=== PATIENT | male | born 1935 | race Caucasian/White ===

== ENCOUNTER → 2016-08-01 | Outpatient (CLI) | payer OTHER | LOC: ULTRA 07:42 | DX: R10.9 Unspecified abdominal pain (principal); R11.0 Nausea ==

== ENCOUNTER → 2019-09-17 | Outpatient (CLI) | payer OTHER ==
[~2019-09-17] MED LIST: LIPITOR 20 MG T20 M1 PO; LISINOPRIL-HCT1 EACH PO
== END ==
LOC: SJCVCIMAG 12:32 → SJCVC 12:32
PROVIDERS: ATTEND Internal Medicine Cardiovascular Disease
DX: I65.23 Occlusion and stenosis of bilateral carotid arteries (principal); R94.39 Abnormal result of other cardiovascular function study; E78.00 Pure hypercholesterolemia, unspecified; I10 Essential (primary) hypertension; R09.89 Other specified symptoms and signs involving the circulatory and respiratory systems; R53.83 Other fatigue; R68.89 Other general symptoms and signs; R07.89 Other chest pain; Z87.891 Personal history of nicotine dependence

== ENCOUNTER 2019-09-25 06:45 | Inpatient (IN) | payer OTHER ==
[~2019-09-25] VITALS: Ht 172.7 cm; Wt 77.6 kg
--- NOTE | ~2019-09-25 | D ---
[facility] [place] [address] DISCHARGE SUMMARY Name: MASTER ESPINO Room #: 209-P ADM IN M.R.#: [id number] Admission: 09/25/19 Attend Phys: Umesh Vazquez MD, Discharge: Date of : 37 Report #: [id number] THIS REPORT FOR: cc: ANUJ - Kerry family physician/PCP ANUJ - Kerry family physician/PCP Umesh Vazquez MD [facility] THIS REPORT FOR: //name// CC: ANUJ physician/PCP Umesh Vazquez [facility] COURSE: The patient is an 84-year-old male admitted with accelerating anginal pattern and cardiac catheterization revealing severe 3-vessel coronary artery disease. Subsequently, underwent bypass surgery by Dr. Mcmahon, complicated by pneumothorax on the right side. Otherwise, he had a nice recovery and remained hemodynamically stable. He is up and ambulating, doing well. His biggest issue is currently urinary retention. The patient had had subtotal LAD and large ramus branch right off of the left main and then ostial right coronary artery of 90%. These 3 vessels were bypassed. The patient had 4-vessel bypass, CARSON to an LAD and SVG to a ramus intermedius, and SVG to a PDA branch off of the right coronary artery and the posterior lateral branch off of the circumflex artery. He will be discharged to home, Wade catheter with Urology appointment. Last creatinine was 1.1. He will be discharged on aspirin, ____ 0.4, amiodarone 400 a day for a week and then decrease to 200, atorvastatin 20, albuterol p.r.n., iron, stool softener, Pepcid. Low fat, low sodium, low cholesterol diet. No heavy lifting as instructed per surgery. Has followup arranged with CV surgery ____. Would prefer to enter into cardiac rehab at [facility]. DISCHARGE DIAGNOSES: 1. Coronary artery disease, successful bypass surgery x4 as noted above. 2. Hypertension. 3. Hypercholesterolemia. 4. Postoperative anemia. 5. Degenerative joint disease. Thank you for asking me to assist in the care of this patient. By: [id number] Umesh Vazquez MD, FACC /nt
[2019-09-25 07:18] VITALS: BP 137/68
[2019-09-25] MEDS ORDERED: LIPITOR 20 MG T20 M1 PO (07:19)
[2019-09-25] MEDS ORDERED: LISINOPRIL-HCT1 EACH PO (07:20)
[2019-09-25 08:16] LABS: HEMATOCRIT 38.4 % (42.0-52.0); MCH 32.7 pg (26.0-34.0); MCHC 33.8 g/dL (28.0-37.0); MCV 96.7 fL (80.0-100.0); RBC 3.97 mil/uL (4.50-6.00); RDW 13.1 % (10.5-14.5); WBC 7.1 thou/uL (4.0-11.0)
[2019-09-25 08:25] LABS: CALCIUM 8.6 mg/dL (8.5-10.1); CREATININE 1.1 mg/dL (0.7-1.3); POTASSIUM 3.6 mmol/L (3.5-5.1)
[2019-09-25 13:13] LABS: ABSOLUTE NEUTROPHILS 4.2 thou/uL (1.4-8.2); BASOPHILS 0.4 % (0.0-2.0); EOSINOPHILS 1.7 % (0.0-3.0); HEMOGLOBIN 13.8 gm/dL (14.0-18.0); MCH 33.1 pg (26.0-34.0); MCHC 34.4 g/dL (28.0-37.0); MCV 96.3 fL (80.0-100.0); MONOCYTES 10.1 % (1.0-8.0); PLATELET COUNT 202 thou/uL (150-400); POLYS 60.8 % (36.0-66.0); RBC 4.16 mil/uL (4.50-6.00); RDW 13.1 % (10.5-14.5); WBC 6.9 thou/uL (4.0-11.0)
[2019-09-25 13:29] LABS: CALCIUM 8.6 mg/dL (8.5-10.1); POTASSIUM 3.5 mmol/L (3.5-5.1)
[2019-09-25 13:34] LABS: APTT 27.1 Seconds (24.5-32.8); PROTIME 10.5 Seconds (9.3-11.4)
[2019-09-25 13:36] LABS: ALBUMIN 3.1 g/dL (3.4-5.0); TOTAL PROTEIN 6.3 g/dL (6.4-8.2)
--- NOTE | 2019-09-25 15:32 | NUR ---
PT ORIENTEDTO ROOM AND UNIT, BED LOW AND LOCKED, SIDE RAILS UP X3, CALL LIGHT IN REACH, TELE APPLIED. WILL CONTINUE TO ASSESS.
[2019-09-25 16:28] VITALS: BP 131/66
[2019-09-25 20:35] VITALS: BP 140/82
[2019-09-26 03:06] LABS: GLYCOHEMOGLOBIN (HGB A1C) 5.8 % (4.8-5.6)
--- NOTE | 2019-09-26 04:20 | NUR ---
ASSUMED CARE OF PATIENT AT 1900. PATIENT RESTED WELL THROUGH NOC. HEARTRATE FLUCTUATED FROM UPPER 50s to LOWER 60s THROUGH NOC. PATIENT DENIED ANY PAIN OR SOA AT ASSESSMENTS. WILL CONTINUE TO MONITOR.
[2019-09-26 04:55] VITALS: BP 129/62
[2019-09-26 08:00] VITALS: BP 121/59
[2019-09-26 09:14] LABS: HEMATOCRIT 41.7 % (42.0-52.0); HEMOGLOBIN 14.3 gm/dL (14.0-18.0); MCH 33.1 pg (26.0-34.0); MCHC 34.3 g/dL (28.0-37.0); MCV 96.4 fL (80.0-100.0); RBC 4.33 mil/uL (4.50-6.00); RDW 13.5 % (10.5-14.5); WBC 8.3 thou/uL (4.0-11.0)
[2019-09-26 09:30] LABS: ALBUMIN 3.4 g/dL (3.4-5.0); CALCIUM 8.9 mg/dL (8.5-10.1); CREATININE 1.1 mg/dL (0.7-1.3); POTASSIUM 3.7 mmol/L (3.5-5.1); TOTAL BILIRUBIN 1.1 mg/dL (0.2-1.0); TOTAL PROTEIN 6.7 g/dL (6.4-8.2)
[2019-09-26 12:00] VITALS: BP 121/59
[2019-09-26 12:10] VITALS: BP 119/63
[2019-09-26 16:00] VITALS: BP 128/86
--- NOTE | 2019-09-26 16:32 | NUR ---
PT CARE ASSUMED AT 0700. ASSESSMENTS CHARTED. MEDICATION CHARTED. VSS. PT HAS NO CONCERNS; REQUESTED PERMISSION TO WALK AROUND UNIT. PT DENIES PAIN.
[2019-09-26 20:30] VITALS: BP 120/62
--- NOTE | 2019-09-27 04:08 | NUR ---
ASSUMED CARE OF PATIENT AT 1900. PATIENT AMBULATED AROUND UNIT BEFORE HS. PATIENT DENIED PAIN AT ASSESSMENTS AND APPEARED REST WELL THROUGH NOC.
[2019-09-27 04:45] VITALS: BP 102/52
[2019-09-27 08:19] VITALS: BP 112/66
[2019-09-27 12:27] VITALS: BP 119/69
[2019-09-27 17:22] VITALS: BP 141/72
--- NOTE | 2019-09-27 18:03 | NUR ---
ASSESSMENTS AND INTERVENTIONS DOCCUMENTED. NO MAJOR CONCERNS THROUGH OUT THE SHIFT. PATIENT SCHEDULED FOR CABG ON SUNDAY.
[2019-09-27 20:00] VITALS: BP 135/71
[2019-09-28 04:45] VITALS: BP 127/59
--- NOTE | 2019-09-28 05:14 | NUR ---
ASSUMED CARE AT 1900. PT ALERT AND ORIENTED. DENIES PT. VSS. NO CHEST PAIN . SR ON THE MONITOR. INDEPENDENT IN HIS ROOM . PT AMBULATED AROUND HALLWAYS WITHOUT ANY C/O SOB. PT AWARE OF THE PLANNED PROCEDURE AND DENIES CONCERNS. WILL CONTINUE TO MONITOR AND FOLLOW POC.
[2019-09-28 07:54] VITALS: BP 119/63
[2019-09-28 07:56] VITALS: BP 119/63
[2019-09-28 11:40] VITALS: BP 111/55
--- NOTE | 2019-09-28 15:39 | NUR ---
PT CARE ASSUMED APPROX 0700. ASSESSMENTS CHARTED. PT DENIES PAIN AND SOA. VSS. UP WITH STEADY GAIT. TOLERATING POC. PT CARE TRANSFERRED TO ANOTHER NURSE AT APPROX 1430. RECEIVING NURSE DENIED QUESTIONS OR CONCERNS REGARDING PT'S POC.
[2019-09-28 15:55] VITALS: BP 140/75
[2019-09-28 20:33] VITALS: BP 138/74
[2019-09-29] VITALS (20 sets, daily range): BP systolic 86–149; BP diastolic 35–87
--- NOTE | 2019-09-29 03:52 | NUR ---
1900. PT ALERT AND ORIENTED. VITALS STABLE. REPORTS MINIMAL CHEST PAIN RATING AT 3/10. NITRO PASTE APPLIED SCHEDULED. CHEST PAIN WAS ALLEVIATED BY MORPHINE 4 MG. TYLENOL PRN FOR HEADACHE. PT REPORTS HX OF MIGRAINE HEADACHES BUT ALSO POSITION NITRO CAUSE. REPORTS NUMBNESS AND MILD TINGLING TO THE LEFT ARM. AM TROPONIN 32.44, NOFIFIED FROM PREVIOUS SHIFT THAT CARDIOLOGY IS AWARE AND DOES NOT WANT TO NOTIFIED OF ELEVATED TROPONINS. PT SCHEDULED FOR A HEART CATH THIS AM. NPO SINCE 0000, CONSENT FOR SIGNED. WILL CONTINUE TO MONITOR AND FOLLOW POC.
--- NOTE | 2019-09-29 05:24 | NUR ---
PT ALERT AND ORIENTED. VITALS STABLE. DENIES CHEST PAIN. NO C/O SOB OR NAUSEA OVERNIGHT. SR ON THE MONITOR. PT SCHEDULED FOR CABG THIS AM. NPO SINCE MIDNIGHT. BLOOD BANK CONFIRMED PRESENCE OF 2 UNITS OF BLOOD FOR THE PATIENT. PREOP SHOWER COMPLETED X2, NIGHT AND MORNING . PT SEEM BY DR VICENTE YESTERDAY AND DENIES ANY CONCERNS. MORNING WEIGHT 157.8 LBS STANDING WEIGHT. RIGHT HAND BP 149/87 (103), LEFT HAND BP 135/86 (104), TEMP 97.5, RESP. 16, O2 98% RA, PULSE 73. ALL PERSONAL BELONGINGS WILL ACCOMPANY THE PATIENT TO PREOP HOLDING PER PATIENT REQUEST. CONSENT FORM SIGNED AND PREOP CHECKLIST INITIATED. WILL CONTINUE TO MONITOR.
--- NOTE | 2019-09-29 07:31 | EKG ---
[facility] [place] [address] ELECTROCARDIOGRAM REPORT Name: MASTER ESPINO Room #: 210-P ADM IN M.R.#: [id number] Admission: 09/25/19 Attend Phys: Umesh Vazquez MD, Discharge: Date of : 37 Report #: [id number] THIS REPORT FOR: cc: FAM - No family physician/PCP FAM - No family physician/PCP Jesu Monreal MD 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 /EPI
[2019-09-29 08:22] LABS: URINE BILIRUBIN NEGATIVE (Negative); URINE BLOOD NEGATIVE (Negative); URINE CLARITY CLEAR; URINE COLOR YELLOW; URINE GLUCOSE-RANDOM* NEGATIVE (Negative); URINE KETONES NEGATIVE (Negative); URINE LEUKOCYTES NEGATIVE (Negative); URINE NITRITE NEGATIVE (Negative); URINE PROTEIN (DIPSTICK) NEGATIVE (Negative); URINE SPECIFIC GRAVITY 1.015 (1.005-1.035); URINE UROBILINOGEN 0.2 E.U./dl (0.2-1.0)
--- NOTE | 2019-09-29 08:30 | NUR ---
chart review, cm consulted. unable to visit with pt rt supposed to be having cabg today. will cont following as needed for dc needs.
[2019-09-29 09:28] LABS: POC BE 2 mmol/L (-2.0 to +3.0); POC CA IONIZED 4.8 mg/dL (4.5-5.3); POC GLUCOSE 113 mg/dL (70-99); POC HEMOGLOBIN 11.9 g/dL (14.0-18.0); POC POTASSIUM 3.9 mmol/L (3.5-5.1); POC SODIUM 139 mmol/L (136-145); POC pCO2 38.4 mmHg (35.0-45.0); POC pH 7.439 (7.360-7.450)
[2019-09-29 12:27] LABS: HEMATOCRIT 26.7 % (42.0-52.0); MCH 32.8 pg (26.0-34.0); MCHC 33.5 g/dL (28.0-37.0); MCV 97.8 fL (80.0-100.0); RBC 2.73 mil/uL (4.50-6.00); RDW 13.9 % (10.5-14.5); WBC 18.9 thou/uL (4.0-11.0)
[2019-09-29 12:45] LABS: APTT 31.9 Seconds (24.5-32.8); FIBRINOGEN 195.8 mg/dL (210-360); PROTIME 15.7 Seconds (9.3-11.4)
[2019-09-29 12:47] LABS: INR 1.5
[2019-09-29 13:44] LABS: POC BE 0 mmol/L (-2.0 to +3.0); POC CA IONIZED 4.3 mg/dL (4.5-5.3); POC GLUCOSE 125 mg/dL (70-99); POC HEMOGLOBIN 9.2 g/dL (14.0-18.0); POC POTASSIUM 4.9 mmol/L (3.5-5.1); POC SODIUM 140 mmol/L (136-145); POC pCO2 39.4 mmHg (35.0-45.0); POC pH 7.411 (7.360-7.450)
[2019-09-29 13:44] LABS: POC BE 1 mmol/L (-2.0 to +3.0); POC CA IONIZED 4.9 mg/dL (4.5-5.3); POC GLUCOSE 111 mg/dL (70-99); POC HCO3 26.7 mmol/L (22.0-26.0); POC HEMOGLOBIN 11.2 g/dL (14.0-18.0); POC POTASSIUM 4.1 mmol/L (3.5-5.1); POC SODIUM 141 mmol/L (136-145); POC pCO2 51.7 mmHg (35.0-45.0); POC pH 7.321 (7.360-7.450)
[2019-09-29 13:45] LABS: POC BE -1 mmol/L (-2.0 to +3.0); POC CA IONIZED 5.7 mg/dL (4.5-5.3); POC GLUCOSE 136 mg/dL (70-99); POC HEMOGLOBIN 8.8 g/dL (14.0-18.0); POC POTASSIUM 3.9 mmol/L (3.5-5.1); POC SODIUM 141 mmol/L (136-145); POC pCO2 38.8 mmHg (35.0-45.0)
[2019-09-29 13:45] LABS: POC BE 2 mmol/L (-2.0 to +3.0); POC CA IONIZED 4.4 mg/dL (4.5-5.3); POC GLUCOSE 137 mg/dL (70-99); POC HCO3 25.2 mmol/L (22.0-26.0); POC HEMOGLOBIN 9.2 g/dL (14.0-18.0); POC POTASSIUM 4.6 mmol/L (3.5-5.1); POC SODIUM 140 mmol/L (136-145); POC pCO2 31.9 mmHg (35.0-45.0); POC pH 7.505 (7.360-7.450)
[2019-09-29 13:45] LABS: POC BE 0 mmol/L (-2.0 to +3.0); POC CA IONIZED 4.4 mg/dL (4.5-5.3); POC GLUCOSE 144 mg/dL (70-99); POC HCO3 24.7 mmol/L (22.0-26.0); POC HEMOGLOBIN 8.5 g/dL (14.0-18.0); POC POTASSIUM 4.3 mmol/L (3.5-5.1); POC SODIUM 140 mmol/L (136-145); POC pCO2 39.1 mmHg (35.0-45.0); POC pH 7.408 (7.360-7.450)
[2019-09-29 13:45] LABS: POC BE -3 mmol/L (-2.0 to +3.0); POC CA IONIZED 4.2 mg/dL (4.5-5.3); POC GLUCOSE 149 mg/dL (70-99); POC HCO3 22.1 mmol/L (22.0-26.0); POC HEMOGLOBIN 10.2 g/dL (14.0-18.0); POC POTASSIUM 3.9 mmol/L (3.5-5.1); POC SODIUM 142 mmol/L (136-145); POC pCO2 37.4 mmHg (35.0-45.0); POC pH 7.379 (7.360-7.450)
[2019-09-29 13:45] LABS: POC BE 0 mmol/L (-2.0 to +3.0); POC CA IONIZED 4.5 mg/dL (4.5-5.3); POC GLUCOSE 154 mg/dL (70-99); POC HCO3 23.9 mmol/L (22.0-26.0); POC HEMOGLOBIN 8.8 g/dL (14.0-18.0); POC POTASSIUM 4.7 mmol/L (3.5-5.1); POC SODIUM 140 mmol/L (136-145); POC pCO2 33.2 mmHg (35.0-45.0); POC pH 7.465 (7.360-7.450)
--- NOTE | 2019-09-29 14:00 | NUR ---
Or Staff sierra over Mr Nancy aguiar Cell Phone. We did call his Servando and updated her.
--- NOTE | 2019-09-29 14:00 | NUR ---
Pt recieved to the ICU acc by Anes and OR crew. Dr Mcmahon and guerrero at the bedside. Pt sedated and on Propofol, No other Drips at this time. Placed on the Vent and the Monitor all hemodynamic numbers WNL. Chest tube and Meds intact and pacemaker off monitor show NSR w PAC's. very small amt of drainage noted in the ct's tubes. Wade patent and drainage blooy w small amt of clots. Rt leg w prudencio wrap no bleeding. Will cont to monitor.
[2019-09-29 14:24] LABS: HEMATOCRIT 31.1 % (42.0-52.0); HEMOGLOBIN 10.4 gm/dL (14.0-18.0); MCH 32.5 pg (26.0-34.0); MCHC 33.3 g/dL (28.0-37.0); MCV 97.7 fL (80.0-100.0); RBC 3.18 mil/uL (4.50-6.00); RDW 13.8 % (10.5-14.5); WBC 26.9 thou/uL (4.0-11.0)
--- NOTE | 2019-09-29 14:25 | NUR ---
Labs send and RT here to do ABG's, Dr Mcmahon aware of the ABG's rt decreased the FIO2 to 50%. pt starting to wake up, opens his eyes and moving his feet. Propofol turned off. will cont to monitor. See vs for Hemodynamics.
[2019-09-29 14:28] LABS: CALCIUM 7.9 mg/dL (8.5-10.1); CREATININE 0.8 mg/dL (0.7-1.3); MAGNESIUM 2.4 mg/dL (1.8-2.4); POTASSIUM 3.9 mmol/L (3.5-5.1)
[2019-09-29 14:35] LABS: BE(vivo) -2.9 mmol/L (-2 to +3); HCO3 22.6 mmol/L (22.0-26.0); PO2 113.2 mmHg (80.0-100.0); pH 7.349 (7.360-7.450); sO2 97.9 % (92.0-98.0)
[2019-09-29 14:35] LABS: APTT 31.3 Seconds (24.5-32.8); INR 1.2; PROTIME 12.2 Seconds (9.3-11.4)
--- NOTE | 2019-09-29 17:00 | NUR ---
Pt awake and pointing to the tube, nods yes when asked does he want it out. Rt called and pt placed on CPAP. 1715 Pt tolerating well. Waiting for Rt. 1735 Pt extubated and placed on a 50% FS VVS. Dr Mcmahon updated.
[2019-09-29 17:25] LABS: BE(vivo) -6.5 mmol/L (-2 to +3); HCO3 18.2 mmol/L (22.0-26.0); PCO2 33.7 mmHg (35.0-45.0); PO2 84.1 mmHg (80.0-100.0); pH 7.351 (7.360-7.450)
--- NOTE | 2019-09-29 18:25 | CATHLAB ---
[facility] [place] [address] INVASIVE PROCEDURE REPORT Name: MASTER ESPINO Room #: 248-P ADM IN M.R.#: [id number] Admission: 09/25/19 Attend Phys: Umesh Vazquez MD, Discharge: Date of : 37 Report #: [id number] THIS REPORT FOR: cc: FAM - No family physician/PCP FAM - No family physician/PCP Umesh Vazquez MD [facility] ~ APPROVED REPORT Study performed: 09/25/2019 07:45:28 Patient Details Patient Status: Out-Patient Room #: The patient is a 84 year-old male Event Personnel Umesh Vazquez Guardian Family Member, Jesse Peñaloza RN RN, Anneliese Bermudez RTR Cody Royal Roberta Monitor, Meggan De Luna RTR Monitor, Farhad Marino RTR X-Ray Tech Procedures Performed Art Access - R femoral artery* Left Heart Cath w/or w/o Coronaries [id number] [facility] [address] Initial Mod Sed Same Phys/QHP Gr5y 608742 06863 Mod Sed Same Phys/QHP Ea 763386 Hemostasis w/ Mynx Aortogram Abdominal Peripheral Angio 674428 Indication Chest pain Procedure Narrative The Right Groin^ was infiltrated with 1% Lidocaine subcutaneous anesthesia. A PINNACLE 6FR Sheath #[id number] sheath was inserted into the RFA^. Coronary angiography was performed using coronary diagnostic catheters. The right coronary system was accessed and visualized with a JR4 catheter. The left coronary system was accessed and visualized with a JL4 catheter. The left ventricle was accessed and visualized with a PIGTAIL catheter. Closure device was deployed with a Fr MYNXGRIP 6/7F #[id number]. The patient tolerated the procedure well and there were no complications associated with the procedure. There was no hematoma. Intraoperative Conscious Sedation Fentanyl 100 mcg Versed 2 mg Fluoro Time: 1.53 minutes [facility] [place] [address] INVASIVE PROCEDURE REPORT Name: MASTER ESPINO Room #: 248-P [facility] IN ..#: [id number] Admission: 09/25/19 Attend Phys: Umesh Vazquez, Discharge: Date of : 37 Report #: [id number] Dose: DAP 2333.70 cGycm2 273 mGy Contrast Type and Amount: Omnipaque 115 ml Hemodynamics The aortic pressure is 102/51 mmHg with a mean of 53 mmHg. The left ventricular pressure is 96/4 mmHg with a mean of mmHg. The left ventricular end diastolic pressure is 12 mmHg. Conclusion 1. Normal left jugular size and systolic function EF 65% #2 abdominal aortogram shows mild infrarenal aortic ectasia but no definite aneurysm. Renal arteries appear to be widely patent #3 there is high-grade and complex ostial LAD disease just off of the left main. Subtotaled in nature preserved flow #4 a ramus intermedius branch is also subtotaled just off of the left main. Significant large area of calcification appears to be involving both the ostium of the LAD and this ramus stenosis. #5 the left main is very short and then subtotally occluded although brisk flow into the circumflex. But the calcium occludes the LAD and ramus as noted above. #6 the circumflex OM is a codominant system there is an eccentric 70% lesion in the mid circumflex #7 high-grade ostial codominant RCA 80% filling a small PDA. Recommendations and plan: Continue aggressive risk factor modification. Patient will be admitted to CCU CV surgical consultation. This complex ostial disease with significant calcification best served with revascularization by bypass. <ELECTRONICALLY SIGNED> By: Umesh Vazquez MD, [facility] 09/29/191824 24 24 Umesh Vazquez MD, FACC /INF
[2019-09-30 05:47] LABS: HEMATOCRIT 30.2 % (42.0-52.0); HEMOGLOBIN 10.1 gm/dL (14.0-18.0); MCH 32.4 pg (26.0-34.0); MCHC 33.5 g/dL (28.0-37.0); MCV 96.7 fL (80.0-100.0); RBC 3.12 mil/uL (4.50-6.00); RDW 13.6 % (10.5-14.5); WBC 28.3 thou/uL (4.0-11.0)
[2019-09-30 05:54] LABS: CALCIUM 7.9 mg/dL (8.5-10.1); CREATININE 1.1 mg/dL (0.7-1.3); MAGNESIUM 2.3 mg/dL (1.8-2.4); POTASSIUM 4.5 mmol/L (3.5-5.1)
--- NOTE | 2019-09-30 06:25 | NUR ---
Pt progressing toward discharge goals. SBP initially in 80-90's range; pt given 250 cc 5% albumin and SBP has remained 100's to 120's, MAP > 60. All chest tubes remain to -20 cmH2O, no crepitus, small air leak from mediastinal tubes beginning at midnight. Pt on 4 L HFC most of night, increased to 5 L when up to chair this a.m. O2 Sat remains > 92%. Able to get IS to 500 cc this a.m. Urine output 400 cc this shift. Taking clear liquids without nausea. All drsgs clean, dry and intact. Pt up to chair with minimal assist of [address] Mcmahon called at 0600 to check on pt status and updated
[2019-09-30 07:40] VITALS: BP 100/62
--- NOTE | 2019-09-30 07:45 | EKG ---
[facility] [place] [address] ELECTROCARDIOGRAM REPORT Name: MASTER ESPINO Room #: 248-P ADM IN M.R.#: [id number] Admission: 09/25/19 Attend Phys: Umesh Vazquez MD, Discharge: Date of : 37 Report #: [id number] THIS REPORT FOR: cc: ANUJ - No family physician/PCP FAM - No family physician/PCP Jesu Monreal MD [facility] ~ THIS REPORT FOR: //name// [facility] Test Date: 2019-09-29 Test Time: 15:57:23 Pat Name: MASTER ESPINO Department: Room: 248 P Gender: M Student Counsellor: Vikram CHAVARRIA : 1935 Requested By: Iam Kat Order Number: [id number] MD: Jesu Monreal Measurements Intervals [place] Rate: 80 P: 60 CA: 181 QRS: 60 QRSD: 133 T: 22 QT: 412 QTc: 476 Interpretive Statements Sinus rhythm Atrial premature complexes Right bundle branch block Compared to ECG 09/26/2019 07:05:00 Atrial premature complex(es) now present Right bundle-branch block now present Sinus bradycardia no longer present Electronically Signed On 09-30-2019 7:45:06 CDT by Jesu Monreal [email or web address] <ELECTRONICALLY SIGNED> By: Jesu Monreal MD, [facility] 09/30/19 0745 1557 1557 Jesu Monreal MD, [facility] /EPI
--- NOTE | 2019-09-30 07:54 | EKG ---
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: AKANKSHA : 1935 Requested By: Iam Kat Order Number: [id number] MD: Jesu Monreal Measurements Intervals [place] Rate: 74 P: 69 IN: 156 QRS: 78 QRSD: 108 T: 34 QT: 403 QTc: 448 Interpretive Statements Sinus rhythm Right bundle branch block Compared to ECG 09/29/2019 15:57:23 Low QRS voltage now present Atrial premature complex(es) no longer present Electronically Signed On 09-30-2019 7:54:36 CDT by Jesu Monreal [email or web address] <ELECTRONICALLY SIGNED> By: Jesu Monreal MD, [facility] 09/30/19 0754 0736 Jesu Monreal MD, [facility] /EPI
--- NOTE | 2019-09-30 08:42 | NUR ---
Nutrition: Pt POD 1 CABG x 4. Consult received. Will followup to address education needs when out of ICU/closer to D/C.
[2019-09-30 09:41] VITALS: BP 93/66
--- NOTE | 2019-09-30 10:57 | NUR ---
cm consult dcp, cm tried to reach pt via phone call, no answer. cm spoke with bedside nurse, unable at the time to see if pt has his cell phone or phone in icu room. will cont following as needed for dc needs.
[2019-09-30 11:40] VITALS: BP 116/50
[2019-09-30 13:40] VITALS: BP 111/43
[2019-09-30 15:40] VITALS: BP 101/56
--- NOTE | 2019-09-30 16:20 | NUR ---
ASSUMED CARE @ 0700 09/30/19, PT ASSESSMENTS AND VSS COMPLETE PER ICU PROTOCOL. PT AXOX4, SWAN DC'D TODAY, PACER WIRES CAPPED, NO COMPLICATIONS NOTED. R ART LINE IN PLACE, GOOD WAVE FORMS NOTED, MED CHEST TUBE HAS A SMALL AIR LEAK, TAMARA AWARE, LEAVE MED CHEST TUBES IN TILL TOMMORROW. FOR PART OF THE AM, UO WAS 20ML/HR, TAMARA HARRIS INFORMED, RN TOLD TO ENCOURAGE TO DRINK FLUIDS BUT IF IT DOES NOT NET TECHNICAL ARCHITECT PUT IN ORDER FOR NS 75ML/HR. 6833 DAUGHTER DARWIN @ BEDSIDE TO VISIT WITH PT.
--- NOTE | 2019-09-30 17:03 | O ---
[facility] [place] [address] OPERATIVE REPORT Name: MASTER ESPINO Room #: 248-P ADM IN M.R.#: [id number] Admission: 09/25/19 Attend Phys: Umesh Vazquez MD, Discharge: Date of : 37 Report #: [id number] THIS REPORT FOR: cc: ANUJ - No family physician/PCP ANUJ - No family physician/PCP Jayy Mcmahon MD ~ CC: [facility] physician/PCP Umesh Vazquez DATE OF SERVICE: 09/29/2019 PREOPERATIVE DIAGNOSIS: Coronary artery disease. POSTOPERATIVE DIAGNOSIS: Coronary artery disease. OPERATION: Coronary artery bypass x 4 including left internal mammary artery to left anterior descending, saphenous vein to ramus intermedius and saphenous vein to posterior descending artery (branch of right coronary) and posterolateral branch (circumflex branch) and endoscopic harvest, right greater saphenous vein. SURGEON: Jayy Mcmahon MD CLOSING COORDINATOR: KIMBERLY Bruner. ANESTHESIA: General. INDICATIONS: The patient is an 84-year-old seen for Dr. Vazquez. The patient presents with progressive angina. Catheterization demonstrates severe 3-vessel coronary artery disease including high-grade LAD and ramus intermedius lesions in a codominant system. The circumflex itself had a 50-60% lesion in my estimation threatening a distal posterolateral branch and the right coronary had an ostial lesion at least 90%. Left ventricular function is satisfactory. FINDINGS AND TECHNIQUE: After general anesthesia was established, saphenous vein was harvested from the right leg using an endoscopic approach and it was prepared for use as a conduit. Exposure was obtained through median sternotomy. Left internal mammary artery was harvested. Pericardial well was made. Cannulation sutures were placed. Heparin was given. Aorta was cannulated. Right atrium was cannulated. Cardioplegia needle was positioned in the aortic root. Retrograde cardioplegic catheter was placed in coronary sinus. Cardiopulmonary bypass was established. Aorta was cross clamped. Antegrade and retrograde cardioplegia were given. Ice was poured into the pericardial well. The heart was stopped. During electromechanical arrest, the distal anastomoses were performed and [facility] [address] [place] [address] OPERATIVE REPORT Name: MASTER ESPINO Room #: 248-P [facility] IN M.R.#: [id number] Admission: 09/25/19 Attend Phys: Umesh Vazquez MD, Discharge: Date of : 37 Report #: [id number] end-to-side anastomosis was made between vein and the posterolateral branch of the circumflex. Cold cardioplegia was given. The same segment of vein was sewn in end-to-side fashion to the posterior descending artery, which was a branch of the right coronary. Cold cardioplegia was given. A separate segment of vein was sewn in end-to-side fashion to the large ramus intermedius. Cold cardioplegia was given. Left internal mammary artery was sewn in end-to-side fashion to the left anterior descending artery. Patency of this vessel was checked with the temperature technique and the Doppler. Cold cardioplegia was given. Two proximal anastomoses were performed. When these were complete, warm retrograde cardioplegia was given followed by warm continuous blood to the coronary sinus. When this infusion was complete, the crossclamp was removed, de-airing maneuvers were performed. The anastomoses were inspected and found to be satisfactory. As the patient warmed, nice cardiac activity resumed, chest tubes and pacing wires were placed, a marker was placed around the proximal anastomoses. When the patient was warm, he was weaned from cardiopulmonary bypass. Venous cannula was removed. Protamine was given, the aortic cannula was removed. Flows were measured in the bypass grafts. When hemostasis was satisfactory, chest was irrigated with antibiotic solution and closed in the usual fashion. The patient was taken to the Intensive Care Unit in good condition having tolerated the procedure well. All counts reported as correct. <ELECTRONICALLY SIGNED> By: Jayy Mcmahon MD 09/30/19 1703 1502 1540 Jayy Mcmahon MD /nt
--- NOTE | 2019-09-30 17:03 | HC ---
[facility] [place] [address] CONSULTATION Name: MASTER ESPINO Room #: 248-P [facility] IN M.R.#: [id number] Admission: 09/25/19 Attend Phys: Umesh Vazquez MD, Discharge: Date of : 37 Report #: [id number] THIS REPORT FOR: cc: [facility] - No family physician/PCP [facility] - No family physician/PCP Jayy Mcmahon MD ~ CC: [facility] physician/PCP Umesh Vazquez DATE OF SERVICE: 09/25/2019 We were asked by Dr. Vazquez to see the patient. HISTORY OF PRESENT ILLNESS: The patient is an 84-year-old who complains of several months of shortness of breath with exertion and chest pain with exertion. This has been relatively stable, but has clearly increased since he first noticed it months ago. The patient states that he has chest pain after walking for 20 minutes or so and developed some shortness of breath that limits his activity. The patient has had no symptoms at rest. The patient is a healthy 84-year-old who is treated for hypercholesterolemia and hypertension. PAST MEDICAL HISTORY: The patient denies diabetes mellitus. 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 He is a former smoker who quit in 1971. ALLERGIES: None known. FAMILY HISTORY: Mother had hypertension. REVIEW OF SYSTEMS: GENERAL: No fever, no weight change. EYES: No recent vision change. ENT: No recent hearing loss. No sinus problems. RESPIRATORY: As mentioned, short of breath, more described as fatigue with exertion. No cough, no hemoptysis. CARDIAC: Angina with exertion. No rest pain, no palpitations. GASTROINTESTINAL: No nausea, vomiting, blood. GENITOURINARY: No urgency, frequency, blood. MUSCULOSKELETAL: No bone or joint pain. SKIN: No rash or infection. NEUROLOGIC: No motor or sensory dysfunction. HEMATOLOGIC: No easy bruising or bleeding. ENDOCRINE: No goiter, no tremor. [facility] [address] [place] [address] CONSULTATION Name: MASTER ESPINO Room #: 248-P [facility]#: [id number] Admission: 09/25/19 Attend Phys: Umesh Vazquez MD, Discharge: Date of : 37 Report #: [id number] PHYSICAL EXAMINATION: CONSTITUTIONAL: The patient is lying in bed after cardiac cath, seems comfortable. VITAL SIGNS: Blood pressure 124/62, heart rate 62. HEENT: No scleral icterus, no arcus. NECK: No mass, no bruit. CHEST: Clear to auscultation. HEART: Rhythm regular with no murmur. ABDOMEN: Soft, no mass. EXTREMITIES: No clubbing, cyanosis or edema. VASCULAR: 2+ popliteal pulses bilaterally. No obvious saphenous vein problems. MUSCULOSKELETAL: No bone or joint asymmetry or deformity. NEUROLOGIC: No gross motor or sensory dysfunction. SKIN: No rash or infection. ASSESSMENT: Cardiac catheterization shows severe 3-vessel coronary artery disease with a codominant system. LAD and a large ramus have subtotal lesions, but fill antegrade. There is mid circumflex stenosis that measures 30% or so, but could be more severe in some views. Right coronary has an ostial lesion 90%. Left ventricular function looks normal. ASSESSMENT AND PLAN: The patient has severe coronary artery disease, particularly in the LAD and right systems. We have been asked to see the patient because of treacherous anatomy and multiple lesions. I have discussed the risks and details of coronary bypass. These include but are not limited to bleeding, infection, anesthesia risks, heart and lung problems, stroke and . Options and alternatives were reviewed. The patient understands all of this and wishes to proceed. We planned surgery for Sunday and we will obtain our preoperative studies before that. It is a privilege to participate in this challenging patient's care. Thank you for the consult. <ELECTRONICALLY SIGNED> By: Jayy Mcmahon MD 09/30/19 1703 1059 1251 Jayy Mcmahon MD /nt
[2019-09-30 17:40] VITALS: BP 106/49
[2019-10-01] VITALS (13 sets, daily range): BP systolic 98–119; BP diastolic 48–60
[2019-10-01 05:56] LABS: HEMATOCRIT 28.9 % (42.0-52.0); HEMOGLOBIN 9.6 gm/dL (14.0-18.0); MCH 32.7 pg (26.0-34.0); MCHC 33.3 g/dL (28.0-37.0); MCV 98.2 fL (80.0-100.0); RBC 2.94 mil/uL (4.50-6.00); RDW 13.9 % (10.5-14.5); WBC 26.5 thou/uL (4.0-11.0)
[2019-10-01 07:11] LABS: CALCIUM 8.1 mg/dL (8.5-10.1)
--- NOTE | 2019-10-01 08:01 | NUR ---
ASSUMED CARE AT 0700, ASSESSMENT AND VITAL SIGNS COMPLETED PER ICU PROTOCOL. RN DISCUSSED POC AND GOALS WITH PT. RN WILL FOLLOW POC AND CONTINUE TO MONITOR.
[2019-10-01 08:15] LABS: POTASSIUM 4.3 mmol/L (3.5-5.1)
--- NOTE | 2019-10-01 18:35 | NUR ---
ASSUMED CARE OF PT THIS AFTERNOON. VSS. SR ON TELE. CHEST TUBE TO SUCTION. PT UP SITTING IN THE CHAIR. ATE VERY SMALL PORTION OF DINNER. WILL CCONTINE TO MONITOR.
[2019-10-02 00:17] VITALS: BP 93/54
--- NOTE | 2019-10-02 03:22 | NUR ---
CARE ASSUMED 1900. PT ALERT AND ORIENTED , BUT IN SOMEWHAT RESPITORY DISTRESS. NOTED WHEEZING AND COURSE LUNG SOUNDS TO THE LEFT, AND ABSENT LUNG SOUNDS TO THE RIGHT. CHEST X-RAY HAD PREVIOUS BEEN DONE DUE TO SOB AND SHOWED DEVELOPMENT OF LARGE PNEUMOTHORAX. DR. CINTHIA MCDONALD NOTIFIED. DR. GANDARA CAME TO THE UNIT AROUND 2029 TO INSERT A RIGHT SIDED CHEST TUBE AT BEDSIDE. PT REPORTS LESS PAIN AND SOB AFTER CHEST TUBE INSERTION. REMAINS SR ON THE MONITOR. DENIES NAUSEA,AND VOMITING. AIR LEAK IN THE LEFT CHEST TUBE PRESENT EVIDENT BY BUBBLING. NO AIR LEAK TO THE RIGHT CHEST TUBE. BOTH ATRIUMS CONNECT TO -20 PRESSURE SUCTION. SEE I&O FOR OUTPUT. O2 TITRATED FROM 6L TO CURRENTLY 3L, SATS >95. NO OTHER CONCERNS. WILL CONTINUE TO FOLLOW POC.
[2019-10-02 04:07] VITALS: BP 112/53
[2019-10-02 07:18] VITALS: BP 104/51
[2019-10-02 11:05] VITALS: BP 113/48
[2019-10-02 15:33] VITALS: BP 114/52
--- NOTE | 2019-10-02 18:20 | NUR ---
ASSUMED CARE AT SHIFT CHANGE, ALERT AND ORIENTED X4. ASSESSMENT DOCUMENTED AND VSS. SOB WITH ACIVITIES, AND WALKED WITH PT AND CARDIAC REHAB. SUJATHA DRESSING INATCT, AND DELMY CT INPLACE WITH DRESSING INTACT. PATIENT WAS UNABLE TO VIOD, AND STATED THAT HE HAS NOT HAVE THE URGE TO GO. DEMETRISAR SCANNED AND CHAVEZ PLACED PER DR ORDERS. PROGRESSING TOWARDS GOALS, AND WILL CONTINUE WITH POC.
[2019-10-02 20:06] VITALS: BP 117/52
[2019-10-03 00:07] VITALS: BP 109/47
[2019-10-03 03:13] VITALS: BP 117/58
[2019-10-03 05:54] LABS: CALCIUM 8.5 mg/dL (8.5-10.1); HEMATOCRIT 26.4 % (42.0-52.0); HEMOGLOBIN 8.8 gm/dL (14.0-18.0); MCH 32.6 pg (26.0-34.0); MCHC 33.5 g/dL (28.0-37.0); MCV 97.2 fL (80.0-100.0); POTASSIUM 4.3 mmol/L (3.5-5.1); RBC 2.71 mil/uL (4.50-6.00); RDW 13.5 % (10.5-14.5); WBC 15.1 thou/uL (4.0-11.0)
--- NOTE | 2019-10-03 05:56 | NUR ---
Assumed care at 1900. pt alert and oriented. vitals stable. Reports sternal chest pain. Pain meds as needed. Flomax first dose started last night. pt currently has a iyer, good urine output. Medium bowel movement last night. reports improved appetite. Denies SOB, Both chest tubes intact. SR on the monitor. 170.9 LBs standing weight this morning. pt encouraged to IS as he has not been good with the IS. Verbalizes understanding. IS 1.5 L achieved. Will continue to monitor.
--- NOTE | 2019-10-03 07:57 | EKG ---
[facility] [place] [address] ELECTROCARDIOGRAM REPORT Name: MASTER ESPINO Room #: 209-P ADM IN M.R.#: [id number] Admission: 09/25/19 Attend Phys: Umesh Vazquez MD, Discharge: Date of : 39 Report #: [id number] THIS REPORT FOR: cc: FAM - No family physician/PCP FAM - No family physician/PCP Jesu Monreal MD [facility] THIS REPORT FOR: //name// [facility] Test Date: 2019-10-03 Test Time: 07:07:34 Pat Name: MASTER ESPINO Department: Room: 209 P Gender: M Client Service Professional: AKANKSHA : [id number] Requested By: Iam Kat Order Number: [id number] MD: Jesu Monreal Measurements Intervals [place] Rate: 84 P: 85 DC: 157 QRS: 47 QRSD: 131 T: 36 QT: 407 QTc: 482 Interpretive Statements Sinus rhythm Right bundle branch block Compared to ECG 09/30/2019 07:36:55 No significant changes Electronically Signed On 10-03-2019 7:57:25 CDT by Jesu Monreal [email or web address] <ELECTRONICALLY SIGNED> By: Jesu Monreal MD, [facility] 10/03/19 0757 6 6 Jesu Monreal MD, [facility] /EPI
[2019-10-03 08:00] VITALS: BP 103/82
[2019-10-03 12:00] VITALS: BP 134/69
--- NOTE | 2019-10-03 13:07 | NUR ---
Assess due to length of stay. S/P CABG x 4. Pt reports usually eats well at home, but decline in intake since surgery which is expected. No wt loss from reported usual wt of 165 lb. Refused breakfast but drank 100% of an ensure which he likes. Offer ensure bid (350 jonel, 20g protein) until appetite returns. Address nutrition education for low fat diet at later time. Low nutrition risk
--- NOTE | 2019-10-03 14:37 | NUR ---
spoke with patient. he cont with chest tubes not ready for discharge. Sp with patient regarding HH care at mo. He reports he does not feel he needs. Dtr will be staying with patient. to discharge from [facility] where she was rec care or PNA. Spoke with therapy who reports should wean 02 and transtion to home and outpatient cardiac rehab.
[2019-10-03 16:00] VITALS: BP 114/52
--- NOTE | 2019-10-03 17:14 | NUR ---
PT WALKED SEVERAL TIME AROUND HALLS WITH PT/OT. ENCOURAGE MORE PO INTAKE AND USE OF ICENTIVE SPIROMETER. PT PROGRESSING TOWARDS GOALS.
[2019-10-03 20:00] VITALS: BP 113/51
--- NOTE | 2019-10-04 04:35 | NUR ---
ASSESSMENTS CHARTED, MEDS GIVEN CHARTED. PATIENT RESTING IN BED DURING SHIFT. POST CABG X 4 DAY 4. ALERT AND ORIENTED, SINUS RHYTHM ON TELEMETRY, TWO CHEST TUBES IN PLACE TO ATRIUMS WITH -20 SUCTION AT START OF SHIFT. ON OXYGEN VIA NC. CHAVEZ IN PLACE SINCE PNEUMOTHORAX DEVELOPMENT. VERY LITTLE APPITITE. PATIENT WALKED WITH ASSIST TO RESTROOM, HAD SMALL BOWEL MOVEMENT. MIDLINE DRESSING AND LEFT LEG DRESSINGS IN PLACE. DENIED NEED FOR PAIN MEDS DURING SHIFT. FALL PRECAUTIONS IN PLACE DURING SHIFT. RECEIVED ORDER FROM DR VICENTE TO PUT ATRIUMS TO WATERSEAL AND ORDER PORTABLE CXR IN AM. PLAN OF CARE IS TO GET CHEST TUBES REMOVED, PATIENT TAKE A SHOWER AND BE ABLE TO GO HOME SOON.
[2019-10-04 05:12] VITALS: BP 130/54
[2019-10-04 05:38] LABS: CALCIUM 8.3 mg/dL (8.5-10.1)
[2019-10-04 08:28] VITALS: BP 106/61
[2019-10-04 12:56] VITALS: BP 111/55
[2019-10-04 17:11] VITALS: BP 111/54
--- NOTE | 2019-10-04 18:11 | NUR ---
RECEIVED PT'S CARE AROUND 0720; PT. ON BED; ALERT; DURING AM ASSESSMENT PT. AOX4; C/O PAIN OVER CHEST; REFUSED PRN PAIN MEDICATION; EDUCATED ABOUT PAIN MANAGEMENT; ST. UNDERSTANDING; AM MEDICATIONS GIVEN; DURING ASSESSMENT NOTICED PART OF R. CHEST TUBE OUT; TAMARA NOTIFIED; NO NEW ORDERS; D/C CHAVEZ ORDERS ON PLACED; CHAVEZ D/C AT 1100; PT. ABLE TO HAVE A BM; PER NURSE AID PT. ABLE TO VOID SOME WITH BM; BLADDER SCANNER PERFORMED AROUND 1720; 220 ML NOTICED; ENCOURAGE PT. TO VOID; STAND UP AT THE BED SIDE; PT. NOT ABLE TO VOID; RISSA NOTIFIED; ORDERS RECEIVED; MONITORING; SR ON THE MONITOR; DRESSING CHANGED; PT. WORK WITH PT & OT; TOLERATED WELL; TITATRE; ON RA; MONITORING; ASSESSMENT CHARGED; FOLLOWING POC; WILL PASS ON REPORT;
[2019-10-04 19:30] VITALS: BP 121/50
--- NOTE | 2019-10-04 22:26 | NUR ---
[facility] PT CARE AT AROUND 1930, PT IS AWAKE, ALERT AND ORIENTEDX4, SR ON THE MONITOR, PT IS ON ROOM AIR, VS STABLE, WILL MONITOR O2 SATS, PT UNABLE TO VOID, ASKED HIM STAND AT THE BEDSIDE AND VOID WITH NPO SUCCESS, BLADDER SCAN DONE, PT HAS 550 ML RESIDUAL, DRESSING TO THE MIDSTERNAL CDI, DRESSING TO THE CHEST TUBE INSERTION SITES CDI, PAIN MEDICATION GIVEN WITH PARTIAL RELIEF, STATED FEELING BETTER, WILL CONTINUE TO MONITOR
[2019-10-05 00:03] VITALS: BP 108/47
--- NOTE | 2019-10-05 00:56 | NUR ---
PT HAD A BM, ATTEMPTED TO VOID WITH NO SUCCESS, BLADDER SCAN AROUND 0030, PT HAS A RESIDUAL OF 749ML, 16FR CHAVEZ CATHETER INSERTED AT 0050, WITH 10ML SYRINGE USED TO INFLATE THE BALOON, PT TOLERATED WELL, CHAVEZ DRAINING LIGHT YELLOW URINE, 1050 CC OUT, PT IS RESTING IN BED, NO DISTRESS NOTED, WILL CONTINUE TO MONITOR
[2019-10-05 04:30] VITALS: BP 103/53
[2019-10-05 08:00] VITALS: BP 106/54
[2019-10-05 12:00] VITALS: BP 04/50; BP 104/50
[2019-10-05 16:31] VITALS: BP 91/49
[2019-10-05 20:19] VITALS: BP 107/45
--- NOTE | 2019-10-05 20:42 | NUR ---
RECEIVED PT'S CARE AROUND 07; PT. ON BED; AOX4; DURING AM ASSESSMENT NO C/O PAIN; AM MEDICATIONS GIVEN; EDUCATED ABOUT FALL PREVENTIONS & GETTING UP TO CHAIR THROUGH THE DAY; ST. UNDERSTANDING; WALKED AROUND THE UNIT WITH PT; O2 TITRATE TO RA; 02 SAT ABOVE 90%; NO C/O SOB; SIT ON THE CHAIR THROUGH THE DAY; SR ON THE MONITOR; PER SILVA PT. NEEDS TO HAVE SET AN APPOINTMENT WITH UROLOGIST AT D/C; PASSED ON REPORT; ASSESSMENT CHARGED; FOLLOWIG POC;
[2019-10-06 00:01] VITALS: BP 98/52
--- NOTE | 2019-10-06 04:28 | NUR ---
ASSUMED PT CARE AT 1900, PT IS IN THE CHAIR SLEEPING, SR/BBB, ASSESSMENTS CHARTED, PAIN MEDICATION GIVEN FOR MIDSTERNAL INCISION PAIN WITH RELIEF, PT DOESNT CALL FOR NEEDS, FREQUENT ROUNDING, DRESSING TO THE CHEST TUBE INSERTION SITES CHANGED, NO DISCHARGE NOTED, CHAVEZ IN PLACE DRAINING WITH NO DIFFICULTY, VITAL SIGNS STABLE, PT REMAINS IN ROOM AIR O2 SATS STABLE,SUJATHA DRESSING CDI, BS STABLE NO COVERAGE, PT IS SLEEPING IN BED AT THIS TIME, NO DISTRESS NOTED, WILL CONTINUE TO MONITOR
[2019-10-06 05:59] LABS: CALCIUM 8.2 mg/dL (8.5-10.1); CREATININE 1.1 mg/dL (0.7-1.3); POTASSIUM 4.3 mmol/L (3.5-5.1)
[2019-10-06] MEDS ORDERED: ADULT LOW DOSE81 MG PO (07:43)
[2019-10-06] MEDS ORDERED: FERREX 150 PLU1 EAC1 PO (07:43)
[2019-10-06] MEDS ORDERED: PACERONE 200 M200 M1 PO (07:43)
[2019-10-06] MEDS ORDERED: FLOMAX0.4 MG PO (07:43)
[2019-10-06] MEDS ORDERED: METOPROLOL SUCC25 M1 PO (07:43)
[2019-10-06 08:00] VITALS: BP 116/56
[2019-10-06] MEDS ORDERED: ACETAMINOPHEN325 M1 PO (10:34)
[2019-10-06 12:00] VITALS: BP 116/56
[2019-10-06 13:00] VITALS: BP 116/56
--- NOTE | 2019-10-06 14:21 | NUR ---
PT CARE ASSUMED AT 0700. ASSESSMENT CHARTED. MEDICATION CHARTED. PT EDUCATED ON LEG BAG FOR CHAVEZ, AND HOME USE OF CHAVEZ. PT PLACED ON LEG BAG FOR CHAVEZ. SUJATHA DRESSING REMOVED PER DR GARCIA. DRESSINGS REPLACED FOR CHEST TUBE WOUNDS. PT DISCHARGED TO HOME; DAUGHTER DRIVING. TELEMETRY D/C'D. IV D/C'D.
== END 2019-10-06 14:20 | disposition home or self-care (01) | DRG 233 ==
LOC: CATH 06:45 → ICU 15:53 → 2N 15:53 → ICU 09-29 07:49 → 2N 10-01 14:38
PROVIDERS: Nurse Practitioner Adult Health; Physician Assistant; Surgery Vascular Surgery; ADMIT Internal Medicine Cardiovascular Disease; ATTEND Internal Medicine Cardiovascular Disease
PROC: 4A023N7 Measurement of Cardiac Sampling and Pressure, Left Heart, Percutaneous Approach (ICD-10-PCS; principal; 2019-09-25)
PROC: B2111ZZ Fluoroscopy of Multiple Coronary Arteries using Low Osmolar Contrast (ICD-10-PCS; principal; 2019-09-25)
PROC: B4101ZZ Fluoroscopy of Abdominal Aorta using Low Osmolar Contrast (ICD-10-PCS; principal; 2019-09-25)
PROC: B4161ZZ Fluoroscopy of Right Renal Artery using Low Osmolar Contrast (ICD-10-PCS; principal; 2019-09-25)
PROC: 02100Z9 Bypass Coronary Artery, One Artery from Left Internal Mammary, Open Approach (ICD-10-PCS; 2019-09-29)
PROC: 30233M1 Transfusion of Nonautologous Plasma Cryoprecipitate into Peripheral Vein, Percutaneous Approach (ICD-10-PCS; 2019-09-29)
PROC: 02HP32Z Insertion of Monitoring Device into Pulmonary Trunk, Percutaneous Approach (ICD-10-PCS; 2019-09-29)
PROC: 06BP4ZZ Excision of Right Saphenous Vein, Percutaneous Endoscopic Approach (ICD-10-PCS; 2019-09-29)
PROC: 021209W Bypass Coronary Artery, Three Arteries from Aorta with Autologous Venous Tissue, Open Approach (ICD-10-PCS; 2019-09-29)
PROC: 5A1221Z Performance of Cardiac Output, Continuous (ICD-10-PCS; 2019-09-29)
PROC: 0W9930Z Drainage of Right Pleural Cavity with Drainage Device, Percutaneous Approach (ICD-10-PCS; 2019-10-01)
DX: I25.10 Atherosclerotic heart disease of native coronary artery without angina pectoris (principal); N17.0 Acute kidney failure with tubular necrosis; D62 Acute posthemorrhagic anemia; J95.811 Postprocedural pneumothorax; E87.1 Hypo-osmolality and hyponatremia; E87.0 Hyperosmolality and hypernatremia; I10 Essential (primary) hypertension; E78.00 Pure hypercholesterolemia, unspecified; M19.90 Unspecified osteoarthritis, unspecified site; E78.5 Hyperlipidemia, unspecified; I65.23 Occlusion and stenosis of bilateral carotid arteries; Y83.8 Other surgical procedures as the cause of abnormal reaction of the patient, or of later complication, without mention of misadventure at the time of the procedure; R33.9 Retention of urine, unspecified; Z20.828 Contact with and (suspected) exposure to other viral communicable diseases; Z79.899 Other long term (current) drug therapy
CPT/HCPCS: 10078; 10081; 47000; 47001; 47002; 47297; 48888; 50010; 50249; 50409; 50456; 50498; 50668; 51301; 52131; 52259; 52287; 52314; 53327; 53358; 54118; 56455; 56524; 56525; 56526; 56527; 56528; 56531; 56534; 56668; 56719; 56760; 56898; 57093; 57116; 57167; 62110; 62950; 65003; 65020; 65047; 65090; 65131; 65135

== ENCOUNTER 2019-10-12 13:41 | Inpatient (IN) | payer OTHER ==
[~2019-10-12] VITALS: Ht 172.7 cm; Wt 88.0 kg
[~2019-10-12 13:41] MED LIST changes: +ACETAMINOPHEN325 M1 PO; +ADULT LOW DOSE81 MG PO; +FERREX 150 PLU1 EAC1 PO; +FLOMAX0.4 MG PO; +METOPROLOL SUCC25 M1 PO; +PACERONE 200 M200 M1 PO
[2019-10-12 14:00] VITALS: BP 96/38
--- NOTE | 2019-10-12 16:14 | NUR ---
PT DIRECT ADMISSION FROM [facility] AT APPROX 1430 D/T WEAKNESS, N/V, DIAPHORESIS. PT ORIENTATION TO ROOM, ADMISSION ORDERS, INSTRUCTIONS COMPLETE. NO C/O PAIN OR N/V AT THIS TIME. WILL CONTINUE TO MONITOR.
[2019-10-12 18:45] VITALS: BP 104/46
[2019-10-12 19:13] VITALS: BP 104/46
--- NOTE | 2019-10-12 19:30 | NUR ---
ASSUMED CARE OF PT AT APPROX 1430 DIRECT ADMIT. ASSESSMENTS CHARTED. MEDS GIVEN PER MAR. NO C/O PAIN. PT CAME WITH CHAVEZ AND LEG BAG D/T RETENTION WHILE HERE PREVIOUSLY FOR CABG. PT HAD UROLOGY APPT SCHEDULED FOR TOMORROW, WILL NEED TO RESCHEDULE. ABX STARTED. WILL CONTINUE TO MONITOR.
[2019-10-13 00:19] VITALS: BP 97/44
--- NOTE | 2019-10-13 05:29 | NUR ---
ASSUMED CARE OF PATIENT AT 1900. PATIENT HAD NO C/O OF PAIN. PATIENT CONTINUES TO HAVE A NPC. NOTED TEA COLORED URINE IN CATHETER WITH SMALL, BROWNISH LOOKING CLOTS. URINE OUTPUT ADEQUATE THROUGH NOC. WILL CONTINUE TO MONITOR.
[2019-10-13 07:15] VITALS: BP 94/53
[2019-10-13 10:33] LABS: HEMATOCRIT 28.8 % (42.0-52.0); HEMOGLOBIN 9.6 gm/dL (14.0-18.0); MCH 32.8 pg (26.0-34.0); MCHC 33.2 g/dL (28.0-37.0); MCV 98.8 fL (80.0-100.0); PLATELET COUNT 343 thou/uL (150-400); RBC 2.91 mil/uL (4.50-6.00); RDW 14.2 % (10.5-14.5); WBC 23.7 thou/uL (4.0-11.0)
[2019-10-13 10:46] LABS: CALCIUM 8.1 mg/dL (8.5-10.1); CREATININE 1.2 mg/dL (0.7-1.3); POTASSIUM 3.8 mmol/L (3.5-5.1)
[2019-10-13 10:56] LABS: ABSOLUTE NEUTROPHILS 21.3 thou/uL (1.4-8.2); PLATELET ESTIMATE NORMAL
--- NOTE | 2019-10-13 14:08 | NUR ---
ORDERS RECEIVED FOR P.T. EVAL AND TREAT. CHART REVIEWED AND P.T. SPOKE TO Pt. Pt STATES THAT HE DID WELL WITH O.T. AND FEELS SAFE WITH ALL MOBILITY. Pt STATES THAT HE DOES NOT WANT P.T. DURING THIS ADMISSION AND WANTS TO JUST AMBULATE WITH NSG. NSG INFORMED AND STATES THAT THIS WILL OCCUR. WILL D/C P.T. AT THIS TIME.
--- NOTE | 2019-10-13 19:53 | NUR ---
ASSUMED CARE OF PT AT SHIFT CHANGE. ASSESSMENTS CHARTED. MEDS GIVEN PER MAY. PT A&OX4. NO C/O PAIN. CHAVEZ REMOVED. PT HAS NOT VOIDED YET. WAITING TO DO POST-VOID BLADDER SCAN. WILL CONTINUE TO MONITOR.
[2019-10-13 23:00] VITALS: BP 143/72
[2019-10-14 05:15] VITALS: BP 114/55
--- NOTE | 2019-10-14 05:47 | NUR ---
ASSUMED CARE 1900. PT ALERT AND ORIENTED, DENIES PAIN, NAUSEA OR VOMITING. PT REPORTED THAT CHAVEZ HAD BEEN DC'D AROUND 1300 AND HE HAD NOT VOIDED YET. PT WAS BLADDER SCANNED SHOWING A RESIDUAL VOLUME OF 432 MLS. PT REUQUESTED MORE TIME TO TRY AND VOID. PT WAS RELUCTANT WITH CHAVEZ CATHETER REQUESTING TO GIVING HIM MORE TIME. AT ABOUT 0100, PT WAS ABLE TO VOID 50 MLS. PVR SHOWED 1012 MLS. AT THIS POINT CHAVEZ WAS PLACED WITH AN INITIAL OUTPUT 1300. NO OTHER CONCERNS OVERNIGHT. ASSESSMENTS DOCUMENTED. WILL CONTINUE TO MONITOR AND FOLLOW POC.
[2019-10-14 06:11] LABS: BASOPHILS 0.3 % (0.0-2.0); HEMATOCRIT 24.9 % (42.0-52.0); HEMOGLOBIN 8.3 gm/dL (14.0-18.0); LYMPHOCYTES 6.9 % (24.0-44.0); MCH 32.4 pg (26.0-34.0); MCHC 33.3 g/dL (28.0-37.0); MCV 97.2 fL (80.0-100.0); MONOCYTES 8.7 % (1.0-8.0); PLATELET COUNT 339 thou/uL (150-400); POLYS 82.1 % (36.0-66.0); RBC 2.56 mil/uL (4.50-6.00); RDW 13.8 % (10.5-14.5); WBC 12.2 thou/uL (4.0-11.0)
[2019-10-14 06:25] LABS: ALBUMIN 2.1 g/dL (3.4-5.0); CALCIUM 7.6 mg/dL (8.5-10.1); POTASSIUM 3.8 mmol/L (3.5-5.1); TOTAL BILIRUBIN 0.6 mg/dL (0.2-1.0); TOTAL PROTEIN 5.4 g/dL (6.4-8.2)
[2019-10-14 08:24] VITALS: BP 136/68
--- NOTE | 2019-10-14 08:26 | HC ---
[facility] [place] [address] CONSULTATION Name: MASTER ESPINO Room #: 218-P [facility] IN .R.#: [id number] Admission: 10/12/19 Attend Phys: Remberto Loera MD Discharge: Date of : 39 Report #: [id number] THIS REPORT FOR: cc: Be Smallwood,Jayy Lutz MD ~ CC: Remberto Smallwood DATE OF SERVICE: 10/13/2019 We were asked to see the patient by Dr. Loera. HISTORY OF PRESENT ILLNESS: The patient is an 84-year-old who had coronary artery bypass surgery on 09/29/2019. The patient had a satisfactory hospital convalescence overall marked by urinary retention and the patient was discharged with a Wade in place with plans to see Urology as an outpatient. The patient's son called me this morning to tell me that the patient was sleepy and also had a fever. The patient states that he was measured to be 100 degrees. No other specific symptoms were described. The patient went to the local Emergency Department where they found a white blood cell count of 30,000 and requested that he be transferred here. The patient was seen by hospitalist here and started on antibiotics. Interestingly, I see no lab work done from our admission. PAST MEDICAL HISTORY: Significant for coronary artery disease, hypertension, hyperlipidemia, urinary retention as mentioned. FAMILY HISTORY: Not significant. SOCIAL HISTORY: Denies tobacco use, occasional alcohol use. MEDICATIONS AT HOME: Aspirin, statin, lisinopril, hydrochlorothiazide, Flomax, iron, amiodarone, metoprolol. REVIEW OF SYSTEMS: GENERAL: As mentioned, the patient describes having a fever of 100 degrees and sleepiness. EYES: No recent vision change. ENT: No hearing loss. No sinus problems. RESPIRATORY: Denies shortness of breath or sputum production. CARDIAC: No angina. GASTROINTESTINAL: No nausea or vomiting. The patient states he has been drinking water without difficulty at home. [facility] [address] [place] [address] CONSULTATION Name: MASTER ESPINO Room #: [facility] IN ..#: [id number] Admission: 10/12/19 Attend Phys: Remberto Loera MD Discharge: Date of : 39 Report #: [id number] GENITOURINARY: Wade in place for urinary retention. MUSCULOSKELETAL: Denies bone or joint pain. SKIN: No rash or infection. NEUROLOGIC: No motor or sensory complaints. HEMATOLOGIC: No bruisability or bleeding. ENDOCRINE: No goiter, no tremor. PHYSICAL EXAMINATION: CONSTITUTIONAL: The patient is lying in bed, awake, claims to be feeling well. VITAL SIGNS: Temperature 37.2, heart rate 92, respiratory rate 20, blood pressure 94/53, pulse ox 92 on room air. HEENT: No scleral icterus, no arcus. NECK: No mass, no bruit. CHEST: Clear to auscultation. HEART: Rhythm regular. Incision is healing well. Sternum is stable. ABDOMEN: Soft. EXTREMITIES: Trace edema on left, 1+ on right. ASSESSMENT: Obviously with Wade in place, there is a concern for urosepsis. I do not see a urinary culture or UA, but the patient is on antibiotics. We will discuss plan with hospitalist. Thank you for the consult. <ELECTRONICALLY SIGNED> By: Jayy Mcmahon MD 10/14/19 0826 [id number] Jayy Mcmahon MD /nt
[2019-10-14 09:49] LABS: URINE BILIRUBIN NEGATIVE (Negative); URINE BLOOD 2+ (Negative); URINE COLOR YELLOW; URINE GLUCOSE-RANDOM* NEGATIVE (Negative); URINE KETONES NEGATIVE (Negative); URINE LEUKOCYTES-REFLEX 3+ (Negative); URINE NITRITE-REFLEX NEGATIVE (Negative); URINE PROTEIN (DIPSTICK) NEGATIVE (Negative); URINE UROBILINOGEN 0.2 E.U./dl (0.2-1.0)
[2019-10-14 09:50] LABS: URINE CLARITY SL HAZY
[2019-10-14 09:59] LABS: AMORPHOUS URATES Few /LPF (None Seen); BACTERIA-REFLEX 1-9 Few /HPF (None Seen); CASTS None Seen /LPF (None Seen); SQUAMOUS None Seen /LPF (0-3); URINE RBC 3-10 Few /HPF (0-2)
[2019-10-14 12:00] VITALS: BP 105/62
[2019-10-14 16:15] VITALS: BP 123/58
[2019-10-14 20:16] VITALS: BP 121/62
--- NOTE | 2019-10-15 04:39 | NUR ---
ASSUMED PT CARE AT 1900. PT IS ALERT AND ORIENTED. NO SIGN OF DISTRESS NOTED IN PT. DENIES ANY PAIN. PT IS AMBULATORY. PT AMBULATES THE HALLWAY. CHAVEZ CATH IN PLACE. PT IS SEEN BY THE PHYSICIAN. ASSESSMENT COMPLETED AND DOCUMENTED. SCHEDULED MEDS ADMINISTERED TO PT. NO FURTHER NEEDS AT THIS TIME.
[2019-10-15 05:04] VITALS: BP 114/69
[2019-10-15 07:57] VITALS: BP 130/62
[2019-10-15 11:27] VITALS: BP 129/72
[2019-10-15 11:46] VITALS: BP 130/62
--- NOTE | 2019-10-15 14:29 | NUR ---
08:00-PT. WHEEZY THIS AM BUT DISAPPEARED ONCE HE COUGHED AND DID DEEP BREATHING EXERCISES. ANTICIPATING HIS DISCHARGE TODAY. CALLED OVER TO [facility] AND HAD THEM FAX OVER HIS URINE CULTURE RESULTS TO US TODAY, WILL SHARE WITH AGUSTÍN ONCE THEYA RRIVE. PT. DENIES ANY PAIN, NO SOB OBSERVED WITH ACTIVITY THIS AM EITHER.
--- NOTE | 2019-10-15 14:31 | NUR ---
10:00-DC'D RIGHT FOREAR IV/AC AREA THERE WAS A HARD KNOT ABOUT THE SIZE OF A QUARTER ABOVE THE CATHETER INSERTION SITE, IF FLUID NOT INFUSING WITH PUSH OF SALINE FLUSH EITHER. WOULD CALL IT AN INFILTRATION SCORE OF =1+. NO MOTTLING, NO CHANGE IN TEMPERATURE AT SITE OR SURROUNDING AREA, NO BLISTERS AND NO BUBBLING AT SITE.
--- NOTE | 2019-10-15 14:35 | NUR ---
RESULTS OF [facility] UA-CULTURE ARRIVED VIA FAX. CALLING RESULTS TO DR. GANDARA'S PA AT THIS TIME AND DISCHARGE ORDERS WELL.
[2019-10-15 16:07] VITALS: BP 124/70
--- NOTE | 2019-10-15 16:09 | NUR ---
Patient admits with UTI. Sp with patient at bedside. he resides at home with and son in home. 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 Prev hospital stay with [facility]. Prev hospital stay patient denied need for HH care and was recently dc from hospital. Patient reports is home with HH care. He reports he would be agreeable to HH care. Patient prev went home with leg bag and f/u apt with urologist. Dtr reports urology grp prev changed locations to [facility]. Dtr interested in urology apt with Dr Peters. Sp with Dr Peters office and faxed clinical information. Ginna at Dr Peters office reports she sp with dtr and apt is October 21 at 1:30. Confirmed with dtr who then sp of hospital stay. She voiced concerns with care, responging to call lights, why transferred to hospital with no urology. Information to be discussed with patrol community service officer. Patient agreeable to HH at this dc and wants HH is receiving. sp with who reports rec HH with [facility]. Referral faxed to HH agency.
--- NOTE | 2019-10-15 16:10 | NUR ---
PAGED OUT TO DR WATTS AT THIS TIME FOR DISCHARGE ORDERS ON PT. AND DISCUSS RESULTS OF THE [facility].
--- NOTE | 2019-10-15 16:25 | NUR ---
FAXED REFERRAL TO [facility] SPOKE WITH RIN IN INTAKE SHE RECEIVED REFERRAL AND WILL ACCEPT.
--- NOTE | 2019-10-15 16:53 | NUR ---
DR. BLACKWOOD CALLED BACK AND ASKED ME TO CALL DR. ALCANTARA INFECTOUS DISEASE GREASER OPERATOR'S OFFICE TO DISCUSS RESULTS THAT WERE FAXED OVER FROM [facility]. DR. BLACKWOOD EXPLAINED THAT THESE RESULT'S WE RECEIVED STILL DO NOT IDENTIFYT THE FINAL ORGANISM FROM THE CULTURE AND THEREFORE HE WAS NOT READY TO DISCHARGE HIM UNTIL DR. ALCANTARA SIGN'S OFF ON THIS RESULT WITH NO IDENTIFIED ORGANISM THUS FAR. WILL PASS THIS ONTO THE DAUGHTER A THIS TIME SHE IS GETTING MORE AND MORE AGITATED THROUGHOUT THE DAY WANTING TO DISCHARGE HER FATHER TODAY.
--- NOTE | 2019-10-15 17:15 | NUR ---
DR. NUNES RETURNED PAGE. HE AGREED THAT WE NEED THE CULTURE RESULTS NOT HE UA RESULTS BEFORE DISCHARGE AND ORGANISM NAME FROM [facility] OR [facility] AT THE MINIMUM. WILL PASS THIS ONTO THE DAUGHTER AT THIS TIME.
--- NOTE | 2019-10-15 18:20 | NUR ---
17:45 EXPLAINED TO DAUGHTER THE TEAMIS AWAITING CULTURE RESULTS NOT THE US RESULTS. THEY CONTINUE TO HAVE QUESTIONS ON THE PLAN OF CARE, PAHGED MD TEAM AT THIS TIME TO SPEAK WITH FAMILY MEMBERS REGARDING HIS RESULTS AND PLAN OF CARE.
--- NOTE | 2019-10-15 18:23 | NUR ---
DR BLACKWOOD CALLED BACK SPEAKING TO PT.'S DAUGHTER AT THIS TIME REGRDING HER FATHER'S PLAN OF CARE WILL F/U WITH THEM BEFORE I LEAVE.
[2019-10-15 19:45] VITALS: BP 132/60
[2019-10-16 03:22] VITALS: BP 113/59
--- NOTE | 2019-10-16 05:20 | NUR ---
Assumed pt care at 1900. pt is alert and oriented. No sign of distress noted in pt. Pt is laying in bed resting. Denies any pain. Assessment completed and documented. Fall precaution in place. Assessment completed and documented. Awaiting urine culture. Continue to monitor pt. No further needs at this time.
[2019-10-16 07:48] VITALS: BP 135/60
[2019-10-16 08:15] VITALS: BP 130/62
[2019-10-16 11:11] VITALS: BP 100/47
[2019-10-16 12:15] VITALS: BP 130/62
[2019-10-16] MEDS ORDERED: PACERONE 200 M200 M1 PO (13:01)
[2019-10-16] MEDS ORDERED: CEFDINIR300 MG PO (13:02)
[2019-10-16 13:37] VITALS: BP 130/62
--- NOTE | 2019-10-16 16:43 | NUR ---
PT CARE ASSUMED AT 0700. ASSESSMENT CHARTED. MEDICATION CHARTED. URINE CULTURE RECEIVED FROM [facility]. PT DISCHARGED HOME. PT PLACED ON A LEG BAG FOR CHAVEZ. IV D/C'D. TELEMETRY D/C'D
== END 2019-10-16 15:44 | disposition home or self-care (01) | DRG 871 ==
LOC: 2N 13:41
PROVIDERS: Physician Assistant; Specialist; ADMIT Hospitalist; ATTEND Hospitalist
DX: A41.9 Sepsis, unspecified organism (principal); J18.9 Pneumonia, unspecified organism; E43 Unspecified severe protein-calorie malnutrition; N39.0 Urinary tract infection, site not specified; N17.9 Acute kidney failure, unspecified; E87.1 Hypo-osmolality and hyponatremia; J90 Pleural effusion, not elsewhere classified; N13.8 Other obstructive and reflux uropathy; R33.9 Retention of urine, unspecified; D64.9 Anemia, unspecified; I25.10 Atherosclerotic heart disease of native coronary artery without angina pectoris; Y95 Nosocomial condition; I10 Essential (primary) hypertension; E78.5 Hyperlipidemia, unspecified; R13.10 Dysphagia, unspecified; D72.829 Elevated white blood cell count, unspecified; K59.00 Constipation, unspecified; G47.00 Insomnia, unspecified; N13.9 Obstructive and reflux uropathy, unspecified; Z79.82 Long term (current) use of aspirin; Z95.1 Presence of aortocoronary bypass graft; Z68.29 Body mass index [BMI] 29.0-29.9, adult
CPT/HCPCS: 10081

== ENCOUNTER → 2019-11-06 | Outpatient (CLI) | payer OTHER ==
[~2019-11-06] MED LIST changes: +CEFDINIR300 MG PO
== END ==
LOC: SJCVC 13:22
PROVIDERS: ATTEND Internal Medicine Cardiovascular Disease
DX: I45.10 Unspecified right bundle-branch block (principal); R94.31 Abnormal electrocardiogram [ECG] [EKG]; I25.810 Atherosclerosis of coronary artery bypass graft(s) without angina pectoris; E78.00 Pure hypercholesterolemia, unspecified; I11.0 Hypertensive heart disease with heart failure; I50.9 Heart failure, unspecified; I65.23 Occlusion and stenosis of bilateral carotid arteries; Z79.899 Other long term (current) drug therapy; Z79.82 Long term (current) use of aspirin; Z87.891 Personal history of nicotine dependence; Z95.1 Presence of aortocoronary bypass graft

== ENCOUNTER → 2020-02-12 | Outpatient (CLI) | payer OTHER | LOC: SJCVC 11:46 | PROVIDERS: ATTEND Internal Medicine Cardiovascular Disease | DX: I25.810 Atherosclerosis of coronary artery bypass graft(s) without angina pectoris (principal); I11.0 Hypertensive heart disease with heart failure; I50.9 Heart failure, unspecified; E78.00 Pure hypercholesterolemia, unspecified; I65.23 Occlusion and stenosis of bilateral carotid arteries; Z95.1 Presence of aortocoronary bypass graft; Z79.899 Other long term (current) drug therapy; Z87.891 Personal history of nicotine dependence ==

== ENCOUNTER → 2020-04-21 | Outpatient (CLI) | payer OTHER | LOC: SJCVCIMAG 09:38 | PROVIDERS: ATTEND Internal Medicine Cardiovascular Disease | DX: I25.10 Atherosclerotic heart disease of native coronary artery without angina pectoris (principal); I50.9 Heart failure, unspecified; I73.9 Peripheral vascular disease, unspecified; Z95.1 Presence of aortocoronary bypass graft; Z79.899 Other long term (current) drug therapy ==

== ENCOUNTER → 2021-01-21 | Outpatient (CLI) | payer OTHER | LOC: SJCVC 10:17 | PROVIDERS: ATTEND Internal Medicine Cardiovascular Disease | DX: R94.31 Abnormal electrocardiogram [ECG] [EKG] (principal); I45.10 Unspecified right bundle-branch block; I48.91 Unspecified atrial fibrillation; I25.810 Atherosclerosis of coronary artery bypass graft(s) without angina pectoris; I11.0 Hypertensive heart disease with heart failure; I50.9 Heart failure, unspecified; E78.00 Pure hypercholesterolemia, unspecified; I77.9 Disorder of arteries and arterioles, unspecified; F32.9 Major depressive disorder, single episode, unspecified; E78.5 Hyperlipidemia, unspecified; Z95.1 Presence of aortocoronary bypass graft; Z79.899 Other long term (current) drug therapy; Z87.891 Personal history of nicotine dependence ==

== ENCOUNTER → 2021-02-22 | Outpatient (CLI) | payer OTHER | LOC: SJCVCIMAG 08:06 | PROVIDERS: ATTEND Internal Medicine Cardiovascular Disease | DX: I08.8 Other rheumatic multiple valve diseases (principal); R94.31 Abnormal electrocardiogram [ECG] [EKG]; I45.10 Unspecified right bundle-branch block; I48.0 Paroxysmal atrial fibrillation; I11.0 Hypertensive heart disease with heart failure; I50.9 Heart failure, unspecified; F32.9 Major depressive disorder, single episode, unspecified; E78.5 Hyperlipidemia, unspecified; I77.9 Disorder of arteries and arterioles, unspecified; E78.00 Pure hypercholesterolemia, unspecified; I25.810 Atherosclerosis of coronary artery bypass graft(s) without angina pectoris; Z95.1 Presence of aortocoronary bypass graft; Z87.891 Personal history of nicotine dependence; Z72.89 Other problems related to lifestyle; Z79.899 Other long term (current) drug therapy ==